=== PATIENT | female | born 1995 | race Caucasian/White ===

== ENCOUNTER → 2019-07-03 10:57 | Outpatient (CLI) | payer BC, SELFPAY ==
[2019-07-03 11:50] LABS: Influenza A - CEPHEID Flu A NEGATIVE (NEGATIVE); Influenza B - CEPHEID Flu B POSITIVE (NEGATIVE)
== END ==
PROVIDERS: Visit Provider Physician Assistant
DX: R68.89 Other general symptoms and signs (principal)
CPT/HCPCS: 87502